=== PATIENT | male | born 1945 | race Caucasian/White ===

== ENCOUNTER → 2017-02-09 | Outpatient (CLI) | payer BC ==
[2017-02-09 13:39] LABS: BASO % 0.6 %; BASO ABS # 0.04 K/uL (0-0.2); COMPLETE YES; EOS % 2.6 %; HEMATOCRIT 49.3 % (42-52); IG% 0.3 %; LYMPH % 34.6 %; LYMPH ABS # 2.39 K/uL (1.2-3.4); MEAN CELL VOLUME 87.4 fL (80-100); MEAN CORPUSCULAR HGB CONC 34.3 g/dl (32-36); MEAN PLATELET VOLUME 9.9 fL (7.4-10.4); NEUT % 49.9 %; PLATELET COUNT 312 K/uL (130-400); RED BLOOD COUNT 5.64 M/uL (4.7-6.1); WHITE BLOOD COUNT 6.91 K/uL (4.8-10.8)
[2017-02-09 14:00] LABS: BLOOD UREA NITROGEN 21 mg/dl (7-18); BUN/CREATININE RATIO 19.3 (10-20); CALCIUM 8.6 mg/dl (8.5-10.1); CARBON DIOXIDE 24 mmol/L (21-32); CHLORIDE 109 mmol/L (98-107); GLUCOSE 112 mg/dl (70-99); HDL CHOLESTEROL 50 mg/dl; POTASSIUM 4.2 mmol/L (3.5-5.1); SODIUM 140 mmol/L (136-145)
[2017-02-09 14:10] LABS: ALB/GLOB RATIO 1.2 (0.9-2); ALKALINE PHOSPHATASE 59 U/L (45-117); ALT/SGPT 47 U/L (12-78); AST/SGOT 26 U/L (15-37); CHOLESTEROL 174 mg/dl (0-200); CHOLESTEROL/HDL RATIO 3.5; LDL CHOLESTEROL CALCULATED 101 mg/dl; TRIGLYCERIDES 113 mg/dl (0-150); VERY LOW DENSITY LIPOPROT CALC 23 mg/dl
== END | disposition home or self-care (01) ==
LOC: C.LABMFLN 07:25
PROVIDERS: ATTEND Nurse Practitioner Adult Health
DX: E78.5 Hyperlipidemia, unspecified (principal); I10 Essential (primary) hypertension; R07.89 Other chest pain; R45.7 State of emotional shock and stress, unspecified

== ENCOUNTER → 2017-09-11 | Outpatient (CLI) | payer BC ==
[2017-09-11 09:40] LABS: BASO % 1.3 %; BASO ABS # 0.09 K/uL (0-0.2); EOS % 2.8 %; EOS ABS # 0.19 K/uL (0-0.5); HEMATOCRIT 48.3 % (42-52); HEMOGLOBIN 17.2 g/dL (14.0-18.0); IG# 0.03 K/uL (0.00-0.02); LYMPH % 34.7 %; LYMPH ABS # 2.32 K/uL (1.2-3.4); MEAN CELL VOLUME 86.7 fL (80-100); MEAN CORPUSCULAR HEMOGLOBIN 30.9 pg (25-34); MEAN CORPUSCULAR HGB CONC 35.6 g/dl (32-36); MEAN PLATELET VOLUME 10.2 fL (7.4-10.4); MONO % 9.4 %; MONO ABS # 0.63 K/uL (0.11-0.59); NEUT % 51.4 %; NEUT ABS # 3.42 K/uL (1.4-6.5); PLATELET COUNT 311 K/uL (130-400); RED CELL DISTRIBUTION WIDTH CV 13.9 % (11.5-14.5); RED CELL DISTRIBUTION WIDTH SD 43.8 fL (36.4-46.3); WHITE BLOOD COUNT 6.68 K/uL (4.8-10.8)
[2017-09-11 10:15] LABS: ALBUMIN 4.2 gm/dl (3.4-5.0); ALT/SGPT 48 U/L (12-78); AST/SGOT 29 U/L (15-37); BLOOD UREA NITROGEN 27 mg/dl (7-18); CALCIUM 9.1 mg/dl (8.5-10.1); CARBON DIOXIDE 24 mmol/L (21-32); CHOLESTEROL 179 mg/dl (0-200); CREATININE 1.02 mg/dl (0.60-1.40); GLUCOSE 106 mg/dl (70-99); POTASSIUM 4.1 mmol/L (3.5-5.1); SODIUM 139 mmol/L (136-145)
[2017-09-11 10:25] LABS: ALKALINE PHOSPHATASE 58 U/L (45-117); LDL CHOLESTEROL CALCULATED 106 mg/dl; TOTAL PROTEIN 7.4 gm/dl (6.4-8.2)
== END | disposition home or self-care (01) ==
LOC: C.LAB1850 08:27
PROVIDERS: ATTEND Internal Medicine
DX: I10 Essential (primary) hypertension (principal); E78.5 Hyperlipidemia, unspecified; M62.89 Other specified disorders of muscle

== ENCOUNTER → 2018-01-15 | Outpatient (CLI) | payer BC ==
--- NOTE | 2018-01-15 12:01 | DIAGNOSTIC IMAGING REPORT ---
L ANKLE MIN 3 VIEWS ROUTINE CLINICAL HISTORY: M25.572 pain COMPARISON: None. DISCUSSION: The bones and joint spaces appear intact. There is no evidence of fracture, dislocation or bony disease. There is no evidence for soft tissue swelling. Soft tissue calcification medially anterior to very small heel spur. IMPRESSION: Very small heel spur. Soft tissue calcification within the plantar fascia. No acute bony abnormality. The above report was generated using voice recognition software. It may contain grammatical, syntax or spelling errors. Electronically signed by: Juan John M.D. 01/15/2018 11:59 AM Dictated Date/Time: 01/15/2018 11:58 AM
== END | disposition home or self-care (01) ==
LOC: C.RAD1850 11:49
PROVIDERS: ATTEND Physician Assistant
DX: M25.572 Pain in left ankle and joints of left foot (principal)

== ENCOUNTER → 2018-01-24 | Outpatient (CLI) | payer BC ==
--- NOTE | 2018-01-24 08:35 | DIAGNOSTIC IMAGING REPORT ---
MRI OF THE LEFT ANKLE WITHOUT CONTRAST CLINICAL HISTORY: Severe lateral left ankle pain. Difficulty ambulating. COMPARISON STUDY: Left ankle radiographs January 15, 2018. TECHNIQUE: Utilizing a 1.5 Cristina magnet and dedicated coil, multiplanar, multiecho imaging of the left ankle was performed without intravenous or intraarticular contrast. FINDINGS: Alignment of the left ankle is anatomic. Talar dome is intact. There is no evidence for fracture. There is no suspicious marrow replacement. There is moderate edema within the lateral mid talus adjacent to the sinus tarsi. There is increased T2 signal and intermediate T1 signal within the sinus tarsi. Achilles tendon is intact. There is slight thickening of the proximal plantar fascia with plantar calcaneal spurring. The flexor and extensor tendons are intact. There is a mild partial thickness tear of the peroneus brevis just distal to the fibular tip. No mass or fluid collection is identified. There is no osteochondral abnormality. IMPRESSION: 1. Findings suggestive of sinus tarsi syndrome which would account for lateral ankle/hindfoot pain. 2. Partial thickness tear of peroneus brevis. Electronically signed by: Zhou Nath M.D. 01/24/2018 8:33 AM Dictated Date/Time: 01/24/2018 8:16 AM
== END | disposition home or self-care (01) ==
LOC: C.MRI 07:02
PROVIDERS: ATTEND Physician Assistant
DX: M25.572 Pain in left ankle and joints of left foot (principal); S86.312A Strain of muscle(s) and tendon(s) of peroneal muscle group at lower leg level, left leg, initial encounter; X58.XXXA Exposure to other specified factors, initial encounter

== ENCOUNTER 2019-04-12 02:39 | Inpatient (IN) ==
--- NOTE | 2019-04-12 04:31 | History & Physical Report ---
Date of Service April 12, 2019 Assessment & Plan (1) NSTEMI (non-ST elevated myocardial infarction): Mr. Rodriguez is a 74-year-old male with a past medical history of prior hemorrhagic CVA, hypertension, BPH, depression, and osteoarthritis who was transferred from the ER in [facility] due to an NSTEMI. ED course in outside hospital: Initial high sensitivity trop @ 2300: 8, repeat at 00:55: 37 WCC 7.25, Hgb 17.6, Plt 281 Na 142, K 4, Cl 106, BUN 16, Cr 0.[address] LFTs W[address] CT brain - microvascular ischemic disease, mild global cerebral volume loss, no acute intracranial abnormality CXR - WNL EKG - no ischemic changes Medications administered: 325mg acetaminophen, 324mg aspirin, nitro ointment, nitro 0.4mg SL tablet, nitro drip, NSS 1L bolus, compazine 5mg IV NSTEMI -admit to telemetry -Patient currently chest pain-free, continue to monitor -heparin drip started at [facility], placed on hold here given the fact that Mr. Rodriguez had a hemorrhagic stroke 6 months ago -cardiology consulted -n.p.o for cardiac cath -Stat CBC, BMP, troponin and EKG ordered -We will continue to trend troponin every 6 hours -ECHO ordered, as well as hemoglobin A1c and fasting lipid panel -10 mg of rosuvastatin changed to 80 mg of atorvastatin -will defer decision on whether to start daily 81 mg aspirin to cardiology given hx of hemorrhagic stroke (pt already received 324mg in [place]) History of hemorrhagic CVA -per review of records - this was a pontine hemorrhage & occurred 6 months ago -Patient reports left-sided facial numbness and frequent headaches as his residual deficits -Secondary prevention medications as above Hypertension -Continue home candesartan Hyperlipidemia -Home rosuvastatin changed to 80 mg of atorvastatin Anxiety -Continue home sertraline -significant social stressors noted - his has early onset Alzheimer's BPH -continue home finasteride CODE STATUS: Full DVT prophylaxis: SCDs Disposition: Admit to telemetry (2) Hypertension: (3) Dyslipidemia: (4) Osteoarthritis: (5) Anxiety: (6) Benign prostatic hyperplasia: (7) History of CVA (cerebrovascular accident): History of Present Illness Chief Complaint: NSTEMI Primary Care Provider: James Daley MD Mr. Rodriguez is a 74-year-old male with a past medical history of prior CVA, hypertension, BPH, depression, and osteoarthritis who was transferred from the ER in [facility] due to an NSTEMI. The patient presented there due to sudden onset severe central chest pain that began at 8 PM, yesterday evening. The patient states the pain came on while he was resting. He reports that by 10 PM, the pain got much worse. He denies associated shortness of breath, vomiting, diaphoresis, and states that the pain did not radiate. He reports that he has never had a history of [place]. He had a stress test 2-3 years ago, which he states was normal. He has been monitoring his blood pressure frequently, as he had a history of CVA 6 months ago. He noted that today it was more elevated than usual, and had his blood pressure at home was approximately 170/110, which made him concerned. He reports increased stress lately, due to the fact that his , at age 58, was diagnosed with early onset Alzheimers. Allergies Allergy/AdvReac Type Severity Reaction Status Date / Time doxepin AdvReac Verified 04/05/19 11:20 gabapentin AdvReac Verified 04/05/19 11:20 Home Medications Home Medications Medication Instructions Recorded Confirmed Type B-complex with vitamin C [Super B 1 tab PO DAILY 08/13/18 04/05/19 History Complex-Vitamin C] cholecalciferol (vitamin D3) 1,000 unit PO DAILY 08/13/18 04/05/19 History [Vitamin D3] multivitamin 1 tab PO DAILY 08/13/18 04/05/19 History candesartan 4 mg tablet 4 mg PO DAILY 02/20/19 04/05/19 History rosuvastatin 10 mg tablet 10 mg PO DAILY tab 02/20/19 04/05/19 History finasteride 5 mg tablet 5 mg PO DAILY #90 tab 03/06/19 04/05/19 Rx candesartan 16 mg tablet 16 mg PO QPM #90 tab 03/18/19 04/05/19 Rx sertraline 50 mg tablet 50 mg PO DAILY #30 tab 03/28/19 04/05/19 Rx Past Med/Surg History Medical History BPH (benign prostatic hyperplasia) History of CVA (cerebrovascular accident) Hypertension Nasal fracture (Resolved) Surgical History H/O foot surgery (Resolved) History of back surgery (Resolved) History of sinus surgery (Resolved) H/O arthroscopic knee surgery History of vasectomy Hx of tonsillectomy Status post rotator cuff repair Total knee replacement status Social History Preferred Language: Citizen Of [place] Communication Ability: Effective Visual Impairment: No Limitations Hearing Ability: Normal Employment Director Required: No Beliefs That Will Affect Care: None marital status: Current Living Situation: Spouse current occupational status: retired 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 occupation: [employer], 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 [employer] Other Information That Helps Us Care for You: No Feels Safe at Home: Yes Safety Concerns: Feels Safe At This Time Smoking Status: Never smoker Do You Dip or Chew Tobacco: No ; Second Hand Exposure: No ; Tobacco Cessation Education Requested by Patient: No Hx Alcohol Use: No Hx Substance Use: No Physical Activity Frequency: 5-6 Times per Week Seatbelt Use: always Review of Systems Constitutional: no fever, no chills and no fatigue Respiratory: no cough, no chest congestion and no wheezing Cardiovascular: + chest pain; no chest pain with activity, no radiating jaw, neck or arm pain, no dyspnea, no orthopnea, no palpitations, no lightheadedness, no syncope, no edema and no calf pain Gastrointestinal: no abdominal pain, no nausea, no vomiting and no change in bowel habits Physical Exam Constitutional: WD/WN, vitals as above Eyes: PERRL, conjunctivae normal, anicteric sclerae ENMT: external ear and nose normal, oropharynx normal Respiratory: normal respiratory effort, lungs clear to auscultation Cardiovascular: RRR, no murmur, no edema Gastrointestinal (Abdomen): normal bowel sounds, soft, nontender, no hepatosplenomegaly Musculoskeletal: no cyanosis or clubbing, extremities motor strength 5/5 Skin: no rashes, warm and dry Neurologic: moves all extremities; no focal motor deficits Psychiatric: A+Ox3, euthymic affect Code Status & VTE Plan VTE Prophylaxis Plan VTE Prophylaxis will be ordered: No Supervising Physician Co-Signing Physician Notes Patient was seen and examined by me personally. I reviewed the chart, the orders and discussed the case in detail with Dr. Larissa Sosa MD. I read this H&P and agree with its contents to entirety. Resident Activity Tracking Resident Involvement: Resident Care Provided Care Provided: Adult Hospital Medicine
[2019-04-12] MEDS ORDERED: MoRPHine SULFATE 2 MG/ML CARP IV PRN (04:42)
[2019-04-12] MEDS ORDERED: ONDANSETRON INJ 2 MG/ML 2 ML VIAL IV PRN ×2 (04:42→11:19)
[2019-04-12] MEDS ORDERED: Heparin IV Standard *NO* Bolus IV ONE (04:42)
[2019-04-12] MEDS ORDERED: MAGNESIUM HYDROXIDE SUSP 30 ML UDC PO PRN (04:42)
[2019-04-12] MEDS ORDERED: HEPARIN SODIUM/DEXTROSE 25,000 UNITS/500 ML BAG IV SCH (04:42)
[2019-04-12] MEDS ORDERED: ALUMINUM/MAGNESIUM SUSP 30 ML UDC PO PRN (04:42)
[2019-04-12] MEDS ORDERED: HEPARIN 25000 UNIT/500 ML D5W IV ONE (04:44)
[2019-04-12] MEDS ORDERED: INFLUENZA VACCINE HIGH DOSE 65+ 0.5 ML SYR IM ONE (05:15)
[2019-04-12] MEDS ORDERED: PNEUMOCOCCAL POLYSACCHARIDES 25 MCG/0.5 ML VIAL/SYR IM ONE (05:15)
[2019-04-12] MEDS ORDERED: PNEUMOCOCCAL ADMINISTRATION CHARGE ONE (05:15)
[2019-04-12] MEDS ORDERED: INFLUENZA ADMINISTRATION CHARGE ONE (05:15)
[2019-04-12 05:27] LABS: Basophils # (auto) 0.05 K/uL (0-0.2); Basophils % (auto) 0.7 %; Eosinophils # (auto) 0.13 K/uL (0-0.5); Eosinophils % (auto) 1.9 %; Hematocrit (blood only) 45.1 % (42-52); Hemoglobin 16.2 g/dL (14.0-18.0); Immature Granulocytes # (auto) 0.01 K/uL (0.00-0.02); Immature Granulocytes % (auto) 0.1 %; Lymphocytes # (auto) 2.42 K/uL (1.2-3.4); Lymphocytes % (auto) 35.4 %; Mean Corpuscular Hemoglobin 31.5 pg (25-34); Mean Corpuscular Volume 87.7 fL (80-100); Mean Platelet Volume 9.8 fL (7.4-10.4); Monocytes # (auto) 0.54 K/uL (0.11-0.59); Monocytes % (auto) 7.9 %; Neutrophils # (auto) 3.69 K/uL (1.4-6.5); Platelet Count 238 K/uL (130-400); RDW Coefficient of Variation 13.4 % (11.5-14.5); RDW Standard Deviation 43.2 fL (36.4-46.3); Red Blood Count 5.14 M/uL (4.7-6.1); White Blood Count 6.84 K/uL (4.8-10.8)
[2019-04-12 05:50] LABS: Mean Corpuscular Hgb Conc 35.9 g/dL (32-36)
[2019-04-12 05:52] LABS: Calcium 8.4 mg/dl (8.5-10.1); Est GFR (African American) 102.7; Est GFR (Non-African American) 88.6; Potassium 4.2 mmol/L (3.5-5.1)
--- NOTE | 2019-04-12 06:09 | Billing Data ---
Coding Level of Care Code 46861 Initial Inpt Care Lvl 3
[2019-04-12 06:13] LABS: Troponin I 0.111 ng/ml (0-0.045)
[2019-04-12] MEDS: NITROGLYCERIN SL 0.4 MG/TAB TAB SL PRN ×2 (08:39→08:46)
[2019-04-12] MEDS ORDERED: ASPIRIN 81 MG ECTAB PO SCH (09:00)
--- NOTE | 2019-04-12 09:04 | Cardiology Consultation ---
Date of Consultation April 12, 2019 Assessment & Plan (1) History of CVA (cerebrovascular accident): Patient with history of intercerebral hemorrhage in 10/2018. This was likely related to severe hypertension at the time. He continues to have some residual symptoms of headaches and left facial paresthesias. (2) NSTEMI (non-ST elevated myocardial infarction): Patient does have mildly elevated cardiac biomarkers. However, he had several hours of fairly severe symptoms. Think with the coronary occlusion we would have seen more extreme elevations in his biomarkers. I think it is very likely that some of these elevations or simply related to his extremely elevated blood pressures. There are no objective findings of ischemia on his EKG. However, he continues to have symptoms of chest discomfort and we will perform coronary angiography urgently. I think with respect to anti-platelet therapy, given the remote nature of his event and mechanism consisting of hypertension, he would be an appropriate candidate for dual anti-platelet therapy if necessary. (3) Hypertension: He continues to have swings in his blood pressure. Currently well controlled. This was after administration of sublingual nitroglycerin. It is very possible that stress and anxiety play a role in his market elevations in blood pressure. However, as antihypertensive regimen could be intensified if necessary. He has relative bradycardia so beta-kendra would be less desirable. Addition of a calcium channel kendra such as amlodipine could be entertained. History of Present Illness Reason for Consultation: Chest pain Requesting Physician: Sammy Attending Physician: Genny Christianson MD History of Present Illness Patient is a 74-year-old gentleman without a known history of cardiac disease who experienced the acute onset of chest discomfort yesterday at approximately 8:00 p.m.. Patient states that he has not felt well for couple of days. He had some difficulty characterizing this statement. Yesterday he continued to feel poorly and did have a headache. However, he states that he has a headache most days. This waxes and wanes in severity and is been present ever since his int ercerebral hemorrhage approximately 6 months ago. Patient also noted elevated blood pressures yesterday. He does check his blood pressure routinely as directed by his physicians. He noted that it was more elevated than usual yesterday. Patient waited approximately 2 hours and without resolution of his headache or chest discomfort proceeded to the emergency room at [facility]. There he was noted to be markedly hypertensive. He was administered prazosin. Laboratory studies and imaging studies to include a CT of his head were performed. His laboratory studies suggested an elevated high sensitivity troponin and he was subsequently transferred to our facility for cardiac catheterization. It seems that the patient's symptoms of chest discomfort had resolved prior to discharge from [facility]. He did not describe associated symptoms of breathing difficulty. He did not have nausea or diaphoresis. The symptoms did not appear to radiate from the precordial area. He cannot recall symptoms of this nature previously. He is a very active individual who exercises regularly. He performs a work out of 1 and 0.5 hours 3 times per week. This includes primarily a aerobic activity such as exercising with an elliptical machine. He does not have symptoms associated with that activity. This morning he began to have symptoms of chest discomfort again. This was similar to the symptoms he experienced last evening. The symptoms did not radiate outside of the precordium. He had not had breathing trouble. There were no pleuritic symptoms. Patient was administered 2 sublingual nitroglycerines with some improvement but no resolution of his symptoms. Allergies Allergy/AdvReac Type Severity Reaction Status Date / Time doxepin AdvReac Verified 04/05/19 11:20 gabapentin AdvReac Verified 04/05/19 11:20 Home Medications Home Medications Medication Instructions Recorded Confirmed Type B-complex with vitamin C [Super B 1 tab PO DAILY 08/13/18 04/12/19 History Complex-Vitamin C] cholecalciferol (vitamin D3) 1,000 unit PO DAILY 08/13/18 04/12/19 History [Vitamin D3] multivitamin 1 tab PO DAILY 08/13/18 04/12/19 History candesartan 4 mg tablet 4 mg PO DAILY 02/20/19 04/12/19 History rosuvastatin 10 mg tablet 10 mg PO DAILY tab 02/20/19 04/12/19 History finasteride 5 mg tablet 5 mg PO DAILY #90 tab 03/06/19 04/12/19 Rx candesartan 16 mg tablet 16 mg PO QPM #90 tab 03/18/19 04/12/19 Rx sertraline 50 mg tablet 50 mg PO DAILY #30 tab 03/28/19 04/12/19 Rx Patient History Medical History BPH (benign prostatic hyperplasia) History of CVA (cerebrovascular accident) Hypertension Nasal fracture (Resolved) Surgical History H/O foot surgery (Resolved) History of back surgery (Resolved) History of sinus surgery (Resolved) H/O arthroscopic knee surgery History of vasectomy Hx of tonsillectomy Status post rotator cuff repair Total knee replacement status Family History Mother Anorexic Osteoporosis Father Alzheimer disease Melanoma Heart disease Social History Preferred Language: Banglades[place] Communication Ability: Effective Visual Impairment: No Limitations Hearing Ability: Normal Coin Teller Required: No Beliefs That Will Affect Care: None marital status: Current Living Situation: Spouse current occupational status: retired 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 No recent fevers or chills. No lower extremity edema. He did report feeling a lot of stress currently due to his 's medical condition. She appears to have early Alzheimer's disease and he is the primary caregiver. Physical Exam Physical Exam: The patient is alert and oriented. Mood and affect appeared normal. He answered all questions appropriately. HEENT: Pupils are equal and reactive to light and accommodation. Extraocular movements are intact. The sclerae are anicteric. Neuro: Cranial nerves intact Neck: Patient's neck is supple. He has palpable carotid pulses bilaterally without bruits on auscultation. There is no evidence of jugular venous distention. The thyroid is not enlarged. Lungs: Clear to auscultation bilaterally. He has good air movement without use of accessory muscles. No rales wheezes or rhonchi. Cardiac: Heart demonstrates a regular rate and rhythm. Normal S1 and S2. No murmurs on examination. Pulses: The patient has palpable radial pulses bilaterally that are equal in intensity Extremities: There was no evidence of hypoperfusion. There is no cyanosis or clubbing. There is no edema. Skin: I did not appreciate any rashes on examination today. Results & Data Vital Signs (Past 12 Hours) Vital Signs Temp Pulse Pulse Resp BP BP Pulse Ox 04/12/19 07:13 36.5 C 57 L 19 150/91 H 96 04/12/19 05:02 48 L 04/12/19 03:58 36.5 C 52 L 20 125/82 95 Laboratory Results Abnormal Lab Results 04/12/19 04/12/19 04:50 04:50 WBC 6.84 RBC 5.14 Hgb 16.2 Hct 45.1 MCV 87.7 MCH 31.5 MCHC 35.9 RDW Std Deviation 43.2 RDW Coeff of Sina 13.4 Plt Count 238 MPV 9.8 Immature Gran % (Auto) 0.1 Neut % (Auto) 54.0 Lymph % (Auto) 35.4 Banks % (Auto) 7.9 Eos % (Auto) 1.9 Baso % (Auto) 0.7 Immature Gran # (Auto) 0.01 Neut # (Auto) 3.69 Lymph # (Auto) 2.42 Banks # (Auto) 0.54 Eos # (Auto) 0.13 Baso # (Auto) 0.05 Sodium 141 Potassium 4.2 Chloride 108 H Carbon Dioxide 29 Anion Gap 4.0 BUN 15 Creatinine 0.80 Est Cr Clr Drug Dosing 96.0 Est GFR ( Amer) 102.7 Est GFR (Non-Af Amer) 88.6 BUN/Creatinine Ratio 19.0 Glucose 116 H Calcium 8.4 L Troponin I 0.111 H* Diagnostic Findings I reviewed his records from [facility] which included a CT scan of the head. This was unremarkable. Chest x-ray was unremarkable. ECG Additional Comments: I reviewed the source images of his EKGs. Sinus bradycardia without acute ST or T-wave changes. No evidence of prior infarct. PG Care Time/CCT Total # of Minutes Spent Total Time Spent with Patient: Total time spent is greater than 50% in coordination of care (as documented) at patient's floor/unit and/or counseling patient:
--- NOTE | 2019-04-12 09:05 | Pre Anesthesia Assessment ---
Date of Service April 12, 2019 Pre Sedation Assessment Vital Signs Temp Pulse Pulse Resp BP BP Pulse Ox 04/12/19 07:13 36.5 C 57 L 19 150/91 H 96 04/12/19 05:02 48 L 04/12/19 03:58 36.5 C 52 L 20 125/82 95 Cardiovascular + regular rate Respiratory + respiratory effort normal Pre-Sedation Airway Assessment Smoking Status: Never smoker Hx Sleep Apnea: No Hx Difficult Intubation: No Short, Thick Neck: No Thyromental Distance: > or= 3.5 Finger Breadths Oral Cavity: + WNL Mallampati Class: III ASA: ASA3 Procedure Planning Contraindications for Sedation: none Current Medications Reviewed: Yes Notes The planned sedation has been discussed with the patient. Informed Consent was obtained. I have identified the patient, determined the appropriateness of sedation and have assessed the patient immediately prior to the procedure. All medicine(s) and interventions are by my order.
[2019-04-12] MEDS ORDERED: NiCARDipine HCL INJ 2.5 MG/ML 10 ML AMP ONE (09:39)
[2019-04-12] MEDS ORDERED: HEPARIN (PORCINE) 1000 UNIT/ML 10 ML (CATH LAB USE ONLY) ONE ×2 (09:39→10:27)
[2019-04-12] MEDS ORDERED: MIDAZOLAM HCL 1 MG/ML 2ML VIAL ONE ×2 (09:40→10:30)
[2019-04-12] MEDS ORDERED: NITROGLYCERIN/D5W 100MCG/ML 20ML SYR ONE (09:40)
[2019-04-12] MEDS ORDERED: fentaNYL citrate 100 MCG/2 ML VIAL ONE (09:40)
--- NOTE | 2019-04-12 10:32 | Post Operative Brief Note ---
Cardiology Brief Post Op Date of Surgery April 12, 2019 Pre & Post Diagnosis Operation Date: 04/12/19 09:00 <No data on this case meets the specified criteria> Procedure :HC, coronaries Dry Drug Worker Alexandre Cevallos MD Care Manager Cna none Estimated Blood Loss 10 Findings See Below Actue lesion in mid LAD. Otherwise normal coronaries without obstructive disease. Normal LVEDP Complications none Disposition Accompanied Patient To Recovery: No Disposition: PCU Overlapping Procedure I was immediately available: during the entire case.
[2019-04-12] MEDS ORDERED: CLOPIDOGREL BISULFATE 300 MG TAB ONE (11:04)
--- NOTE | 2019-04-12 11:05 | Post Anesthesia Assessment ---
Date of Service April 12, 2019 Post Sedation Assessment Vital Signs Temp Pulse Pulse Resp BP BP Pulse Ox 04/12/19 07:13 97.7 F 57 L 19 150/91 H 96 04/12/19 05:02 48 L 04/12/19 03:58 97.7 F 52 L 20 125/82 95 Recovery Score Activity: Moves 4 extremities Respiration: Deep Breath/Cough Circulation: +/-20% PreAnes Value Consciousness: Fully Awake Oxygen Saturation: O2 needed for >90% Discharge Sedation Level of Care: Fast Track Phase II Post Sedation Plan On clinical assessment, the patient appears to have tolerated the sedation without complications. Patient is recovering as anticipated. Patient will continue to be monitored by nursing and may be discharged when sedation discharge criteria are met per below protocol. Upon Completions of procedure and additional 15 minutes continue every 5 minute vital signs and the P.A.R. score; then discharge to a Phase I or Fast Track to Phase II per the following guidelines: * Discharge Patient to appropriate Phase II area if PAR is 8 or greater or return to pre- procedure baseline. The post - procedure orders will be as directed. * If PAR score is less than 8 or not return to pre-procedure baseline then patient will follow Phase I monitoring till PAR is reached for Phase II. The Phase I may be done in procedure room or may call to secure a Phase I area. * If naloxone or flumazenil are used for reversal, hold in Phase I for laura nued monitoring from when last reversal dose was given for a minimum of 60 minutes or longer pending the nurse and/or physician discretion of patient condition before discharge to Phase II. Please call the Sedation Physician to re-evaluate and complete post-note for discharge to Phase II area. Do NOT discharge from procedure sedation or Phase 1 until post- sedation evaluation note is complete by procedure /sedation MD Sedation Discharge Instructions to be given to the patient at discharge to home.
--- NOTE | 2019-04-12 11:08 | Cardiac Catheterization ---
[facility] Data: [facility] Cardiac Status Clinical evaluation leading to the procedure CAD Presenation: Non STEMI Anginal Classification: CCS IV Heart Failure: No Cardiogenic Shock within 24 Hours: No Cardiac Arrest within 24 Hours: No Imaging Studies Past 6 Months: Yes Stress Studies Past 6 Months: No Diagnostic Physicians Name: Alexandre Mccollum MD Status: Elective Closure Device Percutaneous Entry Location: Radial Closure Device: Radial Band Recommendations: PCI without planned CABG PCI Indication: PCI for high risk Non-RADHA Lesion Segment Name: Mid LAD Culprit Artery: Yes Stenosis Prior to Rx (%): 99 Pre-Procedure NAVYA Flow: 2 Previously Treated Lesion: No Lesion Complexity: Non-High/Non-C Lesion Length (mm): 10 Thrombus Present: Yes Bifurcation Lesion: No Guidewire Across Lesion: Stenosis Post-Procedure (%): 0 Post-Procedure NAVYA Flow: 3 Devices(s) Deployed: Yes Yes Intraprocedure Events Significant Disection: No Perforation: No Cardiac Cath Procedure Full Procedure Date April 12, 2019 Pre-Procedure Diagnosis Pre-Procedure Diagnosis: Non STEMI AUC Score AUC Score: 8 Post-Procedure Diagnosis Post-Procedure Diagnosis: Severe CAD and Successful PCI Procedure(s) Performed Procedure(s) Performed: Coronary Angiography and Drug Eluting Stent Trailer Mechanic Alexandre Mccollum MD Engineering Supplies Sales(s) Daniel Estimated Blood Loss Estimated Blood Loss: 15 Medication(s) Medication(s): Clopidogrel, Fentanyl, Heparin, Nicardipine, Nitroglycerin and Versed Summary of Findings Indication: High risk NSTEMI Access: 6 Fr right radial artery Catheters: EBU 4.0 Findings: For full details of patient's coronary angiography please cath report dictated by Dr. Cevallos. Briefly, patient found to have severe single vessel disease with a 95+% acute stenosis involving the mid LAD. Decision to proceed with PCI. -- PCI -- Antithrombotic therapy: Heparin, clopidogrel Procedure: Left main cannulated with EBU 4.0 guide BMW wire passed across lesion into distal vessel Mid LAD lesion predilated with 2.5 compliant balloon Dilated lesion stented with 3.0 x 15 mm [place] drug-eluting Stent post-dilated with 3.0 noncompliant balloon IC vasodilators administered for spasm Post procedure NAVYA 3 flow, stent well expanded with minimal residual stenosis and no apparent cardiac complications. Arterial Closure: TR band Summary: 1. Successful PCI of mid LAD with single drug-eluting stent (3.0 x 15 mm [place]). Recommendations: To PCU for continued monitoring Loaded with clopidogrel 600 mg in cathode ray tube salvage processor Continue dual-antiplatelet therapy for at least one year Continue statin, and ASCVD risk factor modification Consult cardiac Rehab Hemodynamics Rest Ao:: 106/64/55 Final Ao: 114/72/80 LV: -- Recommendations Recommendations: PCI without planned CABG Specimens Specimens: None Radiation Exposure (mGy) 2439 Contrast (mls) 115 Fluids (cc crystalloids) Fluids (cc crystalloids): 105 Drains Drains: None Anesthesia Moderate Procedural Complication(s) None Disposition PCU I attest to the content of the Intraoperative Record and any orders documented therein. Any exceptions are noted below.
[2019-04-12] MEDS ORDERED: SODIUM CHLORIDE 0.9% 1000ML 1,000 ML IV SCH (11:30)
[2019-04-12] MEDS: ACETAMINOPHEN 325 MG TAB PO PRN ×3 (11:39→19:58)
[2019-04-12] MEDS: ATORVASTATIN 40 MG TAB PO SCH (12:23)
[2019-04-12] MEDS: FINASTERIDE 5 MG TAB PO SCH (12:23)
[2019-04-12] MEDS: CHOLECALCIFEROL 1,000 UNITS TAB PO SCH (12:23)
[2019-04-12] MEDS: SERTRALINE HCL 50 MG TABLET PO SCH (12:24)
[2019-04-12] MEDS ORDERED: LOSARTAN POTASSIUM 50 MG TAB PO SCH (13:00)
--- NOTE | 2019-04-12 13:01 | Hospitalist Progress Note ---
Date of Service April 12, 2019 Assessment & Plan (1) NSTEMI (non-ST elevated myocardial infarction): Mr. Rodriguez is a 74-year-old male with a past medical history of prior hemorrhagic CVA, hypertension, BPH, depression, and osteoarthritis who was transferred from the ER in [facility] due to an NSTEMI. ED course in outside hospital: Initial high sensitivity trop @ 2300: 8, repeat at 00:55: 37 CT brain - microvascular ischemic disease, mild global cerebral volume loss, no acute intracranial abnormality CXR - WNL EKG - with anterolat TW changes on repeat ECG with chest pain Troponin here 0.111 -heparin drip started at [facility], placed on hold here given the fact that Mr. Rodriguez had a hemorrhagic stroke 6 months ago -cardiology consulted--appreciate management - cardiac cath with 99% mid-LAD acute lesion now with KEVYN placed -started ASA, Plavix, high intensity statin -cannot tolerate beta kendra due to bradycardia -needs better HTN control as below -ECHO ordered, as well as hemoglobin A1c and fasting lipid panel -referred to Cardiac Rehab History of hemorrhagic CVA -per review of records - this was a pontine hemorrhage & occurred 6 months ago -Patient reports left-sided facial numbness and frequent headaches as his residual deficits -Secondary prevention medications as above -needs improved BP control Hypertension-BPs not controlled -replace home candesartan with losartan 100mg po daily -add amlodipine 5mg daily Hyperlipidemia -Home rosuvastatin changed to 80 mg of atorvastatin while here but can go up to 20mg Crestor on dc Anxiety -Continue home sertraline -significant social stressors noted - his has early onset Alzheimer's BPH -continue home finasteride CODE STATUS: Full DVT prophylaxis: SCDs Disposition: continued stay on telemetry (2) Hypertension: (3) Dyslipidemia: (4) Osteoarthritis: (5) Anxiety: (6) Benign prostatic hyperplasia: (7) History of CVA (cerebrovascular accident): (8) Headache: Subjective pt seen after return from cardiac cath--> he went urgently as he had return of chest pain this AM and had ECG changes, +troponin. Pt reports persistent mild headache but it is much improved from last ngiht. He frequently gets headaches when BPs are elevated ever since his pontine hemorrhage 6 months ago. Denies any current pain, no SOB, no nausea or abd pain Tele with SB 40s-50s Review of Systems Review of Systems: All systems reviewed & are unremarkable except as noted in HPI & below Physical Exam Constitutional: WD/WN, vitals as above Eyes: PERRL, conjunctivae normal, anicteric sclerae ENMT: external ear and nose normal, oropharynx normal Neck: trachea midline, no thyromegaly no anterior neck swelling and neck nontender Thyroid: normal thyroid Respiratory: normal respiratory effort, lungs clear to auscultation Cardiovascular: Rate/Rhythm: regular rhythm and + bradycardic Heart Sounds: no murmur Vessels: dorsalis pedis pulses present Extremities: no calf tenderness and no edema Gastrointestinal (Abdomen): normal bowel sounds, soft, nontender, no hepatosplenomegaly Musculoskeletal: Extremities: extremities normal to inspection; no cyanosis and no clubbing Skin: no rashes, warm and dry Neurologic: moves all extremities and awake; no focal motor deficits Psychiatric: A+Ox3, euthymic affect Results & Data Vital Signs (Past 12 Hours) Vital Signs Temp Pulse Pulse Resp BP BP Pulse Ox 04/12/19 11:43 36.4 C L 45 L 18 121/80 93 04/12/19 11:19 51 L 20 112/80 94 04/12/19 11:15 51 L 20 114/81 94 04/12/19 11:10 51 L 20 115/80 94 04/12/19 11:05 50 L 20 117/85 93 04/12/19 07:13 36.5 C 57 L 19 150/91 H 96 04/12/19 05:02 48 L 04/12/19 03:58 36.5 C 52 L 20 125/82 95 Laboratory Results 04/12/19 04/12/19 04/12/19 Range/Units 16:59 11:49 04:50 WBC (4.8-10.8) K/uL RBC (4.7-6.1) M/uL Hgb (14.0-18.0) g/dL Hct (42-52) % MCV (80-100) fL MCH (25-34) pg MCHC (32-36) g/dL RDW Std Deviation (36.4-46.3) fL RDW Coeff of Sina (11.5-14.5) % Plt Count (130-400) K/uL MPV (7.4-10.4) fL Immature Gran % (Auto) % Neut % (Auto) % Lymph % (Auto) % Webb % (Auto) % Eos % (Auto) % Baso % (Auto) % Immature Gran # (Auto) (0.00-0.02) K/uL Neut # (Auto) (1.4-6.5) K/uL Lymph # (Auto) (1.2-3.4) K/uL Webb # (Auto) (0.11-0.59) K/uL Eos # (Auto) (0-0.5) K/uL Baso # (Auto) (0-0.2) K/uL Sodium 141 (136-145) mmol/L Potassium 4.2 (3.5-5.1) mmol/L Chloride 108 H (98-107) mmol/L Carbon Dioxide 29 (21-32) mmol/L Anion Gap 4.0 (3-11) BUN 15 (7-18) mg/dl Creatinine 0.80 (0.6-1.4) mg/dl Est Cr Clr Drug Dosing 96.0 ml/min Est GFR ( Amer) 102.7 Est GFR (Non-Af Amer) 88.6 BUN/Creatinine Ratio 19.0 (10-20) Glucose 116 H (70-99) mg/dl Calcium 8.4 L (8.5-10.1) mg/dl Troponin I 0.060 H* 0.051 H* 0.111 H* (0-0.045) ng/ml 04/12/19 Range/Units 04:50 WBC 6.84 (4.8-10.8) K/uL RBC 5.14 (4.7-6.1) M/uL Hgb 16.2 (14.0-18.0) g/dL Hct 45.1 (42-52) % MCV 87.7 (80-100) fL MCH 31.5 (25-34) pg MCHC 35.9 (32-36) g/dL RDW Std Deviation 43.2 (36.4-46.3) fL RDW Coeff of Sina 13.4 (11.5-14.5) % Plt Count 238 (130-400) K/uL MPV 9.8 (7.4-10.4) fL Immature Gran % (Auto) 0.1 % Neut % (Auto) 54.0 % Lymph % (Auto) 35.4 % Webb % (Auto) 7.9 % Eos % (Auto) 1.9 % Baso % (Auto) 0.7 % Immature Gran # (Auto) 0.01 (0.00-0.02) K/uL Neut # (Auto) 3.69 (1.4-6.5) K/uL Lymph # (Auto) 2.42 (1.2-3.4) K/uL Webb # (Auto) 0.54 (0.11-0.59) K/uL Eos # (Auto) 0.13 (0-0.5) K/uL Baso # (Auto) 0.05 (0-0.2) K/uL Sodium (136-145) mmol/L Potassium (3.5-5.1) mmol/L Chloride (98-107) mmol/L Carbon Dioxide (21-32) mmol/L Anion Gap (3-11) BUN (7-18) mg/dl Creatinine (0.6-1.4) mg/dl Est Cr Clr Drug Dosing ml/min Est GFR ( Amer) Est GFR (Non-Af Amer) BUN/Creatinine Ratio (10-20) Glucose (70-99) mg/dl Calcium (8.5-10.1) mg/dl Troponin I (0-0.045) ng/ml PG Care Time/CCT Total # of Minutes Spent Total Time Spent with Patient: Total time spent is greater than 50% in coordination of care (as documented) at patient's floor/unit and/or counseling patient:
--- NOTE | 2019-04-12 17:37 | Cardiac Catheterization ---
[facility] Data: [facility] Cardiac Status Clinical evaluation leading to the procedure CAD Presenation: Non STEMI Diagnostic Physicians Name: Alexandre Cevallos MD Closure Device Recommendations: PCI without planned CABG Cardiac Cath Procedure Full Procedure Date April 12, 2019 Pre-Procedure Diagnosis Pre-Procedure Diagnosis: Non STEMI AUC Score AUC Score: 8 Post-Procedure Diagnosis Post-Procedure Diagnosis: Severe CAD and Successful PCI Procedure(s) Performed Procedure(s) Performed: Coronary Angiography and Drug Eluting Stent Stave Log Ripsaw Operator Alexandre Cevallos MD Panelboard Assembler(s) Daniel Estimated Blood Loss Estimated Blood Loss: 15 Medication(s) Medication(s): Clopidogrel, Fentanyl, Heparin, Nicardipine, Nitroglycerin and Versed Summary of Findings Equipment used: 5 Spanish 3DRC, 5 Spanish JL5 Coronary angiography: Left main: Left main essentially trifurcate into the left anterior descending a ramus intermedius branch and the left circumflex. There is no disease in this vessel Left anterior descending: Left anterior descending was a large transapical vessel. It produced a medium-sized 1st diagonal branch. Just distal to the 1st diagonal branch has approximately 50% stenosis in a short segment. In the midportion of the LAD there was a hazy 90% lesion with NAVYA 3 flow. There were diminutive diagonal branches distally in this vessel. No other discrete lesions. Left circumflex: Left circumflex vessel was a codominant vessel. It produced a very small 1st OM branch and a large OM 2 branch. There is no significant disease in this vessel. Ramus intermedius: The ramus intermedius was a medium-sized vessel without disease Right coronary artery: The right coronary artery was a large patulous vessel with luminal irregularities but no discrete stenoses. Hemodynamics Rest Ao:: 98/62 mm of mercury Final Ao: 106/64 mm of mercury LV: 109/3 mm of mercury left ventricular end-diastolic pressure of 15 mm of mercury Recommendations Recommendations: PCI without planned CABG Specimens Specimens: None Radiation Exposure (mGy) q Contrast (mls) q Fluids (cc crystalloids) Fluids (cc crystalloids): 105 Drains Drains: None Anesthesia Moderate Procedural Complication(s) None Disposition PCU I attest to the content of the Intraoperative Record and any orders documented therein. Any exceptions are noted below.
[2019-04-13 06:30] LABS: Basophils # (auto) 0.03 K/uL (0-0.2); Basophils % (auto) 0.5 %; Eosinophils # (auto) 0.16 K/uL (0-0.5); Eosinophils % (auto) 2.6 %; Hematocrit (blood only) 48.1 % (42-52); Hemoglobin 17.1 g/dL (14.0-18.0); Immature Granulocytes # (auto) 0.01 K/uL (0.00-0.02); Immature Granulocytes % (auto) 0.2 %; Lymphocytes # (auto) 1.76 K/uL (1.2-3.4); Lymphocytes % (auto) 28.3 %; Mean Corpuscular Hemoglobin 31.1 pg (25-34); Mean Corpuscular Hgb Conc 35.6 g/dL (32-36); Mean Corpuscular Volume 87.5 fL (80-100); Mean Platelet Volume 9.9 fL (7.4-10.4); Monocytes % (auto) 11.3 %; Neutrophils # (auto) 3.56 K/uL (1.4-6.5); Neutrophils % (auto) 57.1 %; Platelet Count 218 K/uL (130-400); RDW Coefficient of Variation 13.4 % (11.5-14.5); White Blood Count 6.22 K/uL (4.8-10.8)
[2019-04-13 06:57] LABS: BUN Creatinine Ratio 16.8 (10-20); Calcium 8.7 mg/dl (8.5-10.1); Creatinine Clr Calc Pharmacy 88.4 ml/min; Est GFR (African American) 99.7; Magnesium 1.9 mg/dl (1.8-2.4)
[2019-04-13 06:59] LABS: Estimated Average Glucose 120 mg/dl; Hemoglobin A1C 5.8 % (4.5-5.6)
[2019-04-13] MEDS: CHOLECALCIFEROL 1,000 UNITS TAB PO SCH (08:08)
[2019-04-13] MEDS: ATORVASTATIN 40 MG TAB PO SCH (08:08)
[2019-04-13] MEDS: CLOPIDOGREL BISULFATE 75 MG TAB PO SCH (08:08)
[2019-04-13] MEDS: ASPIRIN 81 MG ECTAB PO SCH (08:08)
[2019-04-13] MEDS: SERTRALINE HCL 50 MG TABLET PO SCH (08:09)
[2019-04-13] MEDS: FINASTERIDE 5 MG TAB PO SCH (08:09)
[2019-04-13] MEDS ORDERED: LOSARTAN POTASSIUM 50 MG TAB PO SCH (09:00)
[2019-04-13] MEDS ORDERED: AMLODIPINE BESYLATE 5 MG TAB PO SCH (09:00)
--- NOTE | 2019-04-13 10:39 | Cardiology Progress Note ---
Date of Service April 13, 2019 Subjective He feels well this morning. Has any chest pain chest pressure chest heaviness. He is walking in the hallway without any symptoms. He denies any lightheadedness dizziness presyncope syncope. He has had chronic headaches since his intracerebral bleed. Although when his blood pressures are higher his headache is slightly worse and he does note this this morning. His right hand is warm to touch he denies any discomfort at the catheterization site. He denies any dark stools or black stools or bleeding. Results & Data Vital Signs (Past 12 Hours) Vital Signs Temp Pulse Resp BP BP Pulse Ox 04/13/19 07:35 36.7 C 55 L 18 164/90 H 95 04/13/19 04:00 36.6 C 58 L 18 152/97 H 94 04/12/19 23:16 36.7 C 55 L 17 158/101 H 93 He is awake alert and oriented x3 he looks much younger than his stated age she is in no acute distress HEENT 2+ carotid upstrokes no evidence of carotid bruits his jugular venous pressure appeared normal sclerae anicteric his hearing is normal Lungs: Clear to auscultation bilaterally no rales rhonchi or wheezing Heart: Regular rate and rhythm no appreciable murmurs rubs or gallops Abdomen: Soft nontender nondistended positive bowel sounds Extremity is no clubbing cyanosis or edema brisk right radial pulse his right hand is warm to touch (1) History of CVA (cerebrovascular accident): Patient with history of intercerebral hemorrhage in 10/2018. This was likely related to severe hypertension at the time. He continues to have some residual symptoms of headaches and left facial paresthesias. (2) NSTEMI (non-ST elevated myocardial infarction): Status post angioplasty and stenting of a high-grade mid LAD lesion;Aspirin for life and dual antiplatelet therapy for at least 6 months if not a year (3) Hypertension: Remains difficult to control. This was discussed with the primary service. We do not have Atacand in the hospital. Therefore we will switch him to valsartan 320 mg daily with the idea of sending him home on 32 mg of Atacand. Amlodipine 5 mg daily was added to his medical regiment. In discussion with the hospitalist service we will keep him in the hospital 1 more day to try to get his blood pressure down especially with the need for dual antiplatelet therapy and his previous bleed 4. Hyperlipidemia: His LDL is too high on 10 mg of Crestor and will increase this to 40 mg daily try to drive his LDL closer to 70. All this was discussed with the primary service
--- NOTE | 2019-04-13 12:35 | Hospitalist Progress Note ---
Date of Service April 13, 2019 Assessment & Plan (1) NSTEMI (non-ST elevated myocardial infarction): Mr. Rodriguez is a 74-year-old male with a past medical history of prior hemorrhagic CVA, hypertension, BPH, depression, and osteoarthritis who was transferred from the ER in [facility] due to an NSTEMI. ED course in outside hospital: Initial high sensitivity trop @ 2300: 8, repeat at 00:55: 37 CT brain - microvascular ischemic disease, mild global cerebral volume loss, no acute intracranial abnormality CXR - WNL EKG - with anterolat TW changes on repeat ECG with chest pain Troponin here peaked at 0.111 -heparin drip started at [facility], placed on hold here given the fact that Mr. Rodriguez had a hemorrhagic stroke 6 months ago -cardiology consulted--appreciate management--> with persistent pain, went urgently to cath on AM of 04/12 - cardiac cath with 99% mid-LAD acute lesion now with KEVYN placed Doing well, no further chest pain but with significantly elevated BP in the setting of anxiety. -continue ASA, Plavix, high intensity statin -cannot tolerate beta kendra due to bradycardia -needs better HTN control as below -ECHO with preserved EF< no WMAs --hemoglobin A1c mildly into Pred-DM range at 5.8%--> needs dietary counseling -fasting lipid panel good, LDL 113, HDL 48--> will increase Crestor to 40mg daily from elsy edose of 10mg -referred to Cardiac Rehab History of hemorrhagic CVA -per review of records - this was a pontine hemorrhage & occurred 6 months ago in the setting of severe hypertensive emergency -Patient reports left-sided facial numbness and frequent headaches as his residual deficits -Secondary prevention medications as above -needs improved BP control as below Hypertension-BPs not controlled still today--> anxiety also likely playing a role -replaced home candesartan with losartan 100mg po daily--> however Cardio today recommends switching to valsartan 160mg for tonight and then increase to 320mg qAM tomorrow -upon discharge, should INCREASE Candesartan at home to 32mg daily -added amlodipine 5mg daily -follow BPs and keep overnight for improved BP control Hyperlipidemia-LDL 113 here -change back to home rosuvastatin but increase to 40mg daily Anxiety-uncontrolled -Continue home sertraline but consider increasing to 100mg daily-will d/w patient -significant social stressors noted - his has early onset Alzheimer's BPH -continue home finasteride CODE STATUS: Full DVT prophylaxis: SCDs Disposition: continued stay on telemetry (2) Hypertension: (3) Dyslipidemia: (4) Osteoarthritis: (5) Anxiety: (6) Benign prostatic hyperplasia: (7) History of CVA (cerebrovascular accident): (8) Headache: Subjective Feeling anxious in general. Denies chest pain. Still has a mild headache. BPs have been up. He denies SOB, lightheadedness. Has been walking the halls. No nausea, is gemma po and likes the food. DIscussed the case with Cardiology Tele with SB-NSR, rates 50s-60s Review of Systems Review of Systems: All systems reviewed & are unremarkable except as noted in HPI & below Physical Exam Constitutional: WD/WN, vitals as above Eyes: + anicteric sclerae ENMT: external ear and nose normal, oropharynx normal Neck: trachea midline, no thyromegaly no anterior neck swelling and neck nontender Thyroid: normal thyroid Respiratory: normal respiratory effort, lungs clear to auscultation Cardiovascular: Rate/Rhythm: regular rhythm and + bradycardic Heart Sounds: no murmur Extremities: no calf tenderness and no edema Gastrointestinal (Abdomen): normal bowel sounds, soft, nontender, no hepatosplenomegaly Musculoskeletal: Extremities: extremities normal to inspection; no cyanosis and no clubbing Skin: no rashes, warm and dry Neurologic: moves all extremities and awake; no focal motor deficits Psychiatric: A+Ox3, euthymic affect Results & Data Vital Signs (Past 12 Hours) Vital Signs Temp Pulse Resp BP BP Pulse Ox 04/13/19 11:32 36.5 C 56 L 18 167/89 H 94 04/13/19 07:35 36.7 C 55 L 18 164/90 H 95 04/13/19 04:00 36.6 C 58 L 18 152/97 H 94 Laboratory Results 04/13/19 04/13/19 04/13/19 Range/Units 06:11 06:11 06:11 WBC 6.22 (4.8-10.8) K/uL RBC 5.50 (4.7-6.1) M/uL Hgb 17.1 (14.0-18.0) g/dL Hct 48.1 (42-52) % MCV 87.5 (80-100) fL MCH 31.1 (25-34) pg MCHC 35.6 (32-36) g/dL RDW Std Deviation 43.0 (36.4-46.3) fL RDW Coeff of Sina 13.4 (11.5-14.5) % Plt Count 218 (130-400) K/uL MPV 9.9 (7.4-10.4) fL Immature Gran % (Auto) 0.2 % Neut % (Auto) 57.1 % Lymph % (Auto) 28.3 % Pepin % (Auto) 11.3 % Eos % (Auto) 2.6 % Baso % (Auto) 0.5 % Immature Gran # (Auto) 0.01 (0.00-0.02) K/uL Neut # (Auto) 3.56 (1.4-6.5) K/uL Lymph # (Auto) 1.76 (1.2-3.4) K/uL Pepin # (Auto) 0.70 H (0.11-0.59) K/uL Eos # (Auto) 0.16 (0-0.5) K/uL Baso # (Auto) 0.03 (0-0.2) K/uL Sodium 139 (136-145) mmol/L Potassium 4.0 (3.5-5.1) mmol/L Chloride 106 (98-107) mmol/L Carbon Dioxide 27 (21-32) mmol/L Anion Gap 6.0 (3-11) BUN 14 (7-18) mg/dl Creatinine 0.86 (0.6-1.4) mg/dl Est Cr Clr Drug Dosing 88.4 ml/min Est GFR ( Amer) 99.7 Est GFR (Non-Af Amer) 86.0 BUN/Creatinine Ratio 16.8 (10-20) Glucose 96 (70-99) mg/dl Estimat Average Glucose 120 mg/dl Hemoglobin A1c 5.8 H (4.5-5.6) % Calcium 8.7 (8.5-10.1) mg/dl Magnesium 1.9 (1.8-2.4) mg/dl Troponin I (0-0.045) ng/ml Triglycerides 165 H (0-150) mg/dl Cholesterol 195 (0-200) mg/dl LDL Cholesterol, Calc 114 mg/dl VLDL Cholesterol, Calc 33 mg/dl HDL Cholesterol 48 mg/dl Cholesterol/HDL Ratio 4 Hepatitis C Ab Screen (Neg) 04/13/19 04/12/19 Range/Units 06:11 16:59 WBC (4.8-10.8) K/uL RBC (4.7-6.1) M/uL Hgb (14.0-18.0) g/dL Hct (42-52) % MCV (80-100) fL MCH (25-34) pg MCHC (32-36) g/dL RDW Std Deviation (36.4-46.3) fL RDW Coeff of Sina (11.5-14.5) % Plt Count (130-400) K/uL MPV (7.4-10.4) fL Immature Gran % (Auto) % Neut % (Auto) % Lymph % (Auto) % Pepin % (Auto) % Eos % (Auto) % Baso % (Auto) % Immature Gran # (Auto) (0.00-0.02) K/uL Neut # (Auto) (1.4-6.5) K/uL Lymph # (Auto) (1.2-3.4) K/uL Pepin # (Auto) (0.11-0.59) K/uL Eos # (Auto) (0-0.5) K/uL Baso # (Auto) (0-0.2) K/uL Sodium (136-145) mmol/L Potassium (3.5-5.1) mmol/L Chloride (98-107) mmol/L Carbon Dioxide (21-32) mmol/L Anion Gap (3-11) BUN (7-18) mg/dl Creatinine (0.6-1.4) mg/dl Est Cr Clr Drug Dosing ml/min Est GFR ( Amer) Est GFR (Non-Af Amer) BUN/Creatinine Ratio (10-20) Glucose (70-99) mg/dl Estimat Average Glucose mg/dl Hemoglobin A1c (4.5-5.6) % Calcium (8.5-10.1) mg/dl Magnesium (1.8-2.4) mg/dl Troponin I 0.060 H* (0-0.045) ng/ml Triglycerides (0-150) mg/dl Cholesterol (0-200) mg/dl LDL Cholesterol, Calc mg/dl VLDL Cholesterol, Calc mg/dl HDL Cholesterol mg/dl Cholesterol/HDL Ratio Hepatitis C Ab Screen Neg (Neg) Diagnostic Findings ECHO with mild LVH, no WMAs, RVSP 30-40, preserved EF PG Care Time/CCT Total # of Minutes Spent Total Time Spent with Patient: Total time spent is greater than 50% in coordination of care (as documented) at patient's floor/unit and/or counseling patient:
[2019-04-13] MEDS: ACETAMINOPHEN 325 MG TAB PO PRN (16:20)
[2019-04-13] MEDS ORDERED: HydrALAZINE HCL 20 MG/ML VIAL IV PRN (18:35)
[2019-04-13] MEDS ORDERED: AMLODIPINE BESYLATE 5 MG TAB PO ONE (18:35)
[2019-04-13] MEDS ORDERED: VALSARTAN 80 MG TAB PO ONE (21:00)
[2019-04-14 06:11] LABS: Basophils # (auto) 0.04 K/uL (0-0.2); Basophils % (auto) 0.6 %; Eosinophils # (auto) 0.16 K/uL (0-0.5); Eosinophils % (auto) 2.2 %; Hematocrit (blood only) 47.5 % (42-52); Hemoglobin 17.5 g/dL (14.0-18.0); Immature Granulocytes # (auto) 0.02 K/uL (0.00-0.02); Immature Granulocytes % (auto) 0.3 %; Lymphocytes % (auto) 30.4 %; Mean Corpuscular Hemoglobin 31.8 pg (25-34); Mean Corpuscular Hgb Conc 36.8 g/dL (32-36); Mean Corpuscular Volume 86.4 fL (80-100); Mean Platelet Volume 9.7 fL (7.4-10.4); Monocytes # (auto) 0.82 K/uL (0.11-0.59); Monocytes % (auto) 11.3 %; Neutrophils # (auto) 3.99 K/uL (1.4-6.5); Neutrophils % (auto) 55.2 %; Platelet Count 243 K/uL (130-400); RDW Coefficient of Variation 13.2 % (11.5-14.5); White Blood Count 7.23 K/uL (4.8-10.8)
[2019-04-14 06:41] LABS: BUN Creatinine Ratio 24.5 (10-20); Est GFR (African American) 106.7; Potassium 3.8 mmol/L (3.5-5.1)
[2019-04-14] MEDS: SERTRALINE HCL 50 MG TABLET PO SCH (08:07)
[2019-04-14] MEDS: CHOLECALCIFEROL 1,000 UNITS TAB PO SCH (08:08)
[2019-04-14] MEDS: CLOPIDOGREL BISULFATE 75 MG TAB PO SCH (08:08)
[2019-04-14] MEDS: ASPIRIN 81 MG ECTAB PO SCH (08:08)
[2019-04-14] MEDS: FINASTERIDE 5 MG TAB PO SCH (08:42)
[2019-04-14] MEDS ORDERED: VALSARTAN 80 MG TAB PO SCH (09:00)
[2019-04-14] MEDS ORDERED: AMLODIPINE BESYLATE 5 MG TAB PO SCH (09:00)
[2019-04-14] MEDS ORDERED: ROSUVASTATIN CALCIUM 20 MG TAB PO SCH (09:00)
--- NOTE | 2019-04-14 10:51 | Cardiology Progress Note ---
Date of Service April 14, 2019 Subjective He feels well today. He denies any chest pain chest pressure chest heaviness. Denies any shortness of breath. Denies any lightheadedness or dizziness. His headache is at his baseline which she has had since his previous hemorrhagic stroke. He denies any presyncope or syncope. Denies any bleeding or bruising. Results & Data Vital Signs (Past 12 Hours) Vital Signs Temp Pulse Resp BP Pulse Ox 04/14/19 07:14 36.7 C 63 16 152/72 H 93 04/14/19 03:37 36.6 C 64 18 153/84 H 94 04/13/19 23:22 36.5 C 57 L 16 149/99 H 95 He is awake alert and oriented x3 he looks much younger than his stated age she is in no acute distress HEENT 2+ carotid upstrokes no evidence of carotid bruits his jugular venous pressure appeared normal sclerae anicteric his hearing is normal Lungs: Clear to auscultation bilaterally no rales rhonchi or wheezing Heart: Regular rate and rhythm no appreciable murmurs rubs or gallops Abdomen: Soft nontender nondistended positive bowel sounds Extremity is no clubbing cyanosis or edema brisk right radial pulse his right hand is warm to touch (1) History of CVA (cerebrovascular accident): Patient with history of intercerebral hemorrhage in 10/2018. This was likely related to severe hypertension at the time. He continues to have some residual symptoms of headaches and left facial paresthesias. (2) NSTEMI (non-ST elevated myocardial infarction): Status post angioplasty and stenting of a high-grade mid LAD lesion;Aspirin for life and dual antiplatelet therapy for at least 6 months if not a year. Discussed with the patient if he needs to stop his aspirin and Plavix for any reason in the next year he needs to let his primary cytotechnologist supervisor know. He should follow-up with Dr. Cevallos in 2 weeks time. There is no room for beta-blockers given his relative bradycardia (3) Hypertension: Remains difficult to control. He can be discharged on Atacand 32 mg daily as well as amlodipine 5 mg daily. If his blood pressures remain elevated at home and have asked him to check them he is amlodipine can be increased to 10 mg daily. He was concerned that we would be able to get his blood pressure down. I discussed and we have lots of medication options. He was given prazosin in the ER in [place] I would avoid giving him alpha blockers. 4. Hyperlipidemia: His LDL is too high on 10 mg of Crestor and will increase this to 40 mg daily try to drive his LDL closer to 70. All this was discussed with the primary service
[2019-04-14 11:49] VITALS: BP 134/87; TEMP 97.7; O2SAT 96
--- NOTE | 2019-04-14 12:50 | Discharge Summary ---
Date of Service April 14, 2019 Admission HPI Per Admitting Provider Mr. Rodriguez is a 74-year-old male with a past medical history of prior CVA, hypertension, BPH, depression, and osteoarthritis who was transferred from the ER in [facility] due to an NSTEMI. The patient presented there due to sudden onset severe central chest pain that began at 8 PM, yesterday evening. The patient states the pain came on while he was resting. He reports that by 10 PM, the pain got much worse. He denies associated shortness of breath, vomiting, diaphoresis, and states that the pain did not radiate. He reports that he has never had a history of CO. He had a stress test 2-3 years ago, which he states was normal. He has been monitoring his blood pressure frequently, as he had a history of CVA 6 months ago. He noted that today it was more elevated than usual, and had his blood pressure at home was approximately 170/110, which made him concerned. He reports increased stress lately, due to the fact that his , at age 58, was diagnosed with early onset Alzheimers. Discharge Exam Constitutional WD/WN, vitals as above Eyes PERRL, conjunctivae normal, anicteric sclerae + anicteric sclerae ENMT external ear and nose normal, oropharynx normal Neck trachea midline, no thyromegaly no anterior neck swelling and neck nontender Thyroid: normal thyroid Respiratory normal respiratory effort, lungs clear to auscultation Cardiovascular Rate/Rhythm: regular rhythm and + bradycardic Heart Sounds: no murmur Vessels: dorsalis pedis pulses present Extremities: no calf tenderness and no edema Gastrointestinal (Abdomen) normal bowel sounds, soft, nontender, no hepatosplenomegaly Musculoskeletal Extremities: extremities normal to inspection; no cyanosis and no clubbing Skin no rashes, warm and dry Neurologic moves all extremities and awake; no focal motor deficits Psychiatric A+Ox3, euthymic affect Discharge Data Allergies Allergy/AdvReac Type Severity Reaction Status Date / Time doxepin AdvReac Verified 04/05/19 11:20 gabapentin AdvReac Verified 04/05/19 11:20 Consultations 04/12/19 04:42 Consult Cardiology Routine 04/12/19 11:23 Consult Cardiac Rehabilitation Routine Procedures Performed Operation Date: 04/12/19 09:00 Actual Procedures s Cineradiography w/Routine Exam - Jaleel Cevallos MD p Cath, Left with Cors and Vent(Not Applicable) - Jaleel Cevallos MD s Drug Eluting Stent SGl Vessel(Not Applicable) - Jaleel Mccollum MD Ordered Studies 04/12/19 09:33 CL Cath Imgs for PACS use only Routine Hospital Course (1) NSTEMI (non-ST elevated myocardial infarction): Mr. Rodriguez is a 74-year-old male with a past medical history of prior hemorrhagic CVA, hypertension, BPH, depression, and osteoarthritis who was transferred from the ER in [facility] due to an NSTEMI. ED course in outside hospital: Initial high sensitivity trop @ 2300: 8, repeat at 00:55: 37 CT brain - microvascular ischemic disease, mild global cerebral volume loss, no acute intracranial abnormality CXR - WNL EKG - with anterolat TW changes on repeat ECG with chest pain Troponin here peaked at 0.111 -heparin drip started at [facility], placed on hold here given the fact that Mr. Rodriguez had a hemorrhagic stroke 6 months ago -cardiology consulted--appreciate management--> with persistent pain, went urgently to cath on AM of 04/12 - cardiac cath with 99% mid-LAD acute lesion now with KEVYN placed Doing well, no further chest pain but with significantly elevated BP in the setting of anxiety. -continue ASA, Plavix, high intensity statin -cannot tolerate beta kendra due to bradycardia -needs better HTN control as below -ECHO with preserved EF< no WMAs --hemoglobin A1c mildly into Pred-DM range at 5.8%--> needs dietary counseling -fasting lipid panel good, LDL 113, HDL 48--> will increase Crestor to 40mg daily from elsy edose of 10mg -referred to Cardiac Rehab History of hemorrhagic CVA -per review of records - this was a pontine hemorrhage & occurred 6 months ago in the setting of severe hypertensive emergency -Patient reports left-sided facial numbness and frequent headaches as his residual deficits -Secondary prevention medications as above -needs improved BP control as below Hypertension-BPs not controlled still today--> anxiety also likely playing a role -replaced home candesartan with losartan 100mg po daily--> however Cardio today recommends switching to valsartan 160mg for tonight and then increase to 320mg qAM tomorrow -upon discharge, should INCREASE Candesartan at home to 32mg daily -added amlodipine 5mg daily -follow BPs and keep overnight for improved BP control Hyperlipidemia-LDL 113 here -change back to home rosuvastatin but increase to 40mg daily Anxiety-uncontrolled -Continue home sertraline but consider increasing to 100mg daily-will d/w patient -significant social stressors noted - his has early onset Alzheimer's BPH -continue home finasteride CODE STATUS: Full DVT prophylaxis: SCDs Disposition: continued stay on telemetry (2) Hypertension: (3) Dyslipidemia: (4) Osteoarthritis: (5) Anxiety: (6) Benign prostatic hyperplasia: (7) History of CVA (cerebrovascular accident): (8) Headache: Discharge Plan Discharge Items Patient Disposition: Home - Self-Care Reason For Visit: NSTEMI Discharge Diagnosis: NSTEMI Condition on Discharge: Good Activity: As commented below Lifting: Wait until after follow-up appointment Bathing: No limitations Exercise/Sports: Wait until after follow-up appointment Exercise Comment: You can walk but no heavy exertion Driving/Machine Use: Resume 1 day after discharge Non-emergency contact: Primary Care Provider and Carousel Attendant Call non-emergency contact if: you have any medication questions, your symptoms worsen, your pain is not controlled, your pain is worsening, your pain is unusual for you, your pain is concerning for you and you have a fever Follow-up/Referrals: James Da Silva MD [Primary Care Provider] - 04/23/19 11:20 am (You have a hospital follow-up appointment with Evan Cano on 04/23/19 at 11:20am. If this date and time does not work for you or if you have any questions, please call their office #[phone].) Jaleel Mccollum MD [Physician] - 04/30/19 10:00 am (You have a cardiology follow-up appointment with Dr. Alexandre Mccollum on 04/30/2019 at 1000am. Their office will be contacting you directly if there are any openings sooner. If this date and time does not work for you or if you have any questions, please call their office #[phone].) Diet: Heart Healthy Addtl Attending Provider Instructions: You were admitted with a heart attack and had a stent placed in your heart. It is important to take Aspirin and Plavix daily. FOr better blood pressure control, we have switched you to valsartan 320mg once daily and amlodipine 10mg daily. You will STOP your candesartan. Your Crestor has been increased to 40mg daily. Please follow up with Cardiology and your PCP as scheduled for you. If you have recurrent chest pain, or have shortness of breath, please call 911 immediately. Home Care: * Take your medications exactly as directed. Don't skip doses. * Remember that recovery after a heart attack takes time. Plan to rest for at lease 4-8 weeks while you recover. Then return to normal activity when your doctor says it's okay. * Ask your doctor about joining a heart rehabilitation program. * Tell your doctor if you are feeling depressed. Feelings of sadness are common after a heart attack, but it is important that you speak to someone if you are feeling overwhelmed by these feelings. * If you are having chest pain, call 911 for an ambulance. Do NOT drive yourself to the hospital. * Ask your family members to learn CPR. * Learn to take your own blood pressure and pulse. Keep a record of your results. Ask your doctor when you should seek emergency medical attention. He or she will tell you which blood pressure reading is dangerous. Lifestyle Changes: * Maintain a healthy weight. Get help to lose any extra pounds. * Cut back on salt. * Limit canned, dried, packaged, and fast foods. * Don't add salt to your food. * Season foods with herbs instead of salt when you cook. * Break the smoking habit. Enroll in a stop-smoking program to improve your chances of success. * Limit fatty foods. * Ask your doctor about having your lipid levels checked regularly. * Build up your activity according to your doctor's recommendation. * Ask your doctor when it's okay to resume sexual activity. * Tell your doctor about any erectile dysfunction (ED) medication you are taking. Some ED medications are not safe if you take certain heart medications. * Try to manage stress. Follow Up: It is important for you to keep your follow up appointments with your medical provider. ACTIVITY RECOMMENDATIONS: Excess manipulation of the wrist should be avoided for the next 24-48 hours. * No lifting over 2 pounds (approximately a 1/2 gallon of milk) with the utilized arm for 24 hours. * No strenuous activity such as bowling or tennis for 3 days. * Keep the site of the procedure covered with a bandage for 24 hours. *You may shower the day after the procedure. Do not take a tub bath or submerge the puncture site in water for the next 3 days. *Do not operate any motorized equipment for 3 days. SPECIAL CARE INSTRUCTIONS: The site may be slightly bruised and sore following your procedure. Should any of the following occur, contact the Dr. who performed your procedure. 1. Redness/inflammation, swelling, chills, or fever, or colored drainage at procedure site within 3-7 days after your procedure. 2. Coldness, discoloration, ongoing numbness, severe pain, or swelling. Expect mild tingling of hand and tenderness at the puncture site for up to three days. If this persists beyond three days, or other symptoms develop, notify the Dr. who performed your procedure. BLEEDING: If the procedure site on your wrist begins to bleed, do not panic 1. Place 1 or 2 fingers firmly just slightly above the insertion site to stop the bleeding. You may be able to feel your pulse as you hold pressure. 2. Lift your finger after 5 minutes to see if the bleeding has stopped. 3. Once the bleeding has stopped, gently wipe the wrist area clean with a bandage. * If the bleeding from your wrist does not stop after 10 minutes, or if there is a large amount of bleeding or spurting, call 911 (do not drive yourself to the hospital). SKIN IRRITATION: * You may experience some redness and/or swelling in the area where radiation was administered. If any skin irritation occurs, please contact your family p sana. FOLLOW UP VISIT: Keep any scheduled doctor appointments. Pending Studies at Discharge: No Stand-Alone Forms: My [facility] Medications and DC Order Prescriptions: New clopidogrel 75 mg Tablet 75 mg PO QAM Qty: 30 RF: 0 amlodipine 10 mg tablet 10 mg PO DAILY Qty: 30 RF: 0 nitroglycerin [Nitrostat] 0.4 mg Tablet, Sublingual 0.4 mg sublingual UD PRN (Reason: chest pain) Qty: 15 RF: 0 rosuvastatin 40 mg tablet 40 mg PO DAILY Qty: 30 RF: 0 valsartan 320 mg tablet 320 mg PO DAILY Qty: 30 RF: 0 aspirin [Ecotrin Low Strength] 81 mg Tablet,Delayed Release (Dr/Ec) 81 mg PO QAM Qty: 30 RF: 0 Continued finasteride 5 mg tablet 5 mg PO DAILY Qty: 90 RF: 0 sertraline 50 mg tablet 50 mg PO DAILY Qty: 30 RF: 2 multivitamin Tablet 1 tab PO DAILY RF: 0 cholecalciferol (vitamin D3) [Vitamin D3] 1,000 unit Capsule 1,000 unit PO DAILY RF: 0 B-complex with vitamin C [Super B Complex-Vitamin C] Tablet 1 tab PO DAILY RF: 0 Discontinued candesartan [Atacand] 16 mg tablet 16 mg PO QPM Qty: 90 RF: 1 candesartan 4 mg tablet 4 mg PO DAILY RF: 0 rosuvastatin [Crestor] 10 mg tablet 10 mg PO DAILY RF: 0 Discharge Orders: Discharge Order (Routine); Ordered 04/14/19 Ordered By: Genny Christianson Admission Data Admit Date/Time: 04/12/19 04:29 Attending Provider: Genny Christianson Admit Provider: Kory Ribeiro Primary Care Provider: James Da Silva V. Other Providers: Jaleel Cevallos
[2019-04-14 12:58] VITALS: PULSE 57
== END 2019-04-14 13:34 | disposition home or self-care (01) | DRG 247 ==
LOC: 2S 04:29 → SUATTDRO 04:29